=== PATIENT | female | born 2000 | race Caucasian/White ===

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

== ENCOUNTER → 2018-03-27 16:06 | Outpatient (CLI) | payer OTHER, SELFPAY ==
[2018-03-27 14:46] VITALS: BMI 29.9
[2018-03-27 17:35] LABS: Vitamin B12 557 pg/mL (211-911)
[2018-03-27 17:38] LABS: Ferritin 30 ng/mL (8-252); Free T3 2.7 pg/mL (2.18-3.98); Iron 62 ug/dL (50-170); T4 Free Direct 0.86 ng/dL (0.76-1.46); Thyroid Stim Hormone (TSH) 8.69 uIU/mL (0.358-3.74)
--- OUTSIDE RECORDS SUMMARY | 2018-06-29 08:57 | XMS RPT_ITS ---
:2000 Author Organization OH[facility] Care Team Providers Name Role Phone Farhana Shea DENTAL TECHNICIAN APPRENTICE-C Attending Unavailable Playl, Referring Unavailable Farhana Shea DENTAL TECHNICIAN APPRENTICE-C Attending Unavailable Farhana Shea DENTAL TECHNICIAN APPRENTICE-C Referring Unavailable Oleghe, Efewongbe Primary Care Unavailable Oleghe, Efewongbe Attending Unavailable Oleghe, Efewongbe Referring Unavailable Playl, Primary Care Unavailable Oleghe, Efewongbe Attending Unavailable Oleghe, Efewongbe Referring Unavailable Oleghe, Efewongbe Primary Care Unavailable Oleghe, Efewongbe Attending Unavailable Oleghe, Efewongbe Referring Unavailable Farhana Shea DENTAL TECHNICIAN APPRENTICE-C Attending Unavailable Shook, Farhana J DENTAL TECHNICIAN APPRENTICE-C Referring Unavailable Oleghe, Efewongbe Primary Care Unavailable PLAYLTIMOTHY Attending Unavailable PLAYL, TIMOTHY Thomas Referring Unavailable PLAYLTIMOTHY M Referring Unavailable PLAYL, M Referring Unavailable JASIEL DUMONT) Attending Unavailable TIMOTHY BONDS Referring Unavailable PROBLEMS PROBLEMS DATE TYPE CONDITION / CODE ATTENDING STATUS SOURCE 03/27/2018 Unknown R94.6 - Abnormal Farhana Shae Active [facility] results of D[facility]AL TECHNICIAN APPR[facility] Hospital studies / Repository R94.6(ICD-10) 03/27/2018 Unknown E06.3 - Farhana Shea Active [facility] DENTAL TECHNICIAN APPRENTICE[facility] thyroiditis / Hospital E06.3(ICD-10) Repository 09/10/2017 Active Left lower NA Active [facility] quadrant pain / [facility] [place] R10.32(ICD-10) Repository 02/21/2018 Unknown K90.41 - Olechapis, Active [place] 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 / Hospital K90.41(ICD-10) Repository 02/21/2018 Unknown R10.9 - Oleghe, Active [facility] Unspecified [facility] abdominal pain / Hospital R10.9(ICD-10) Repository PROCEDURES PROCEDURES No Procedure Records FoundRESULTS RESULTS THYROID Observed: 03/31/2018 Status: F Source: [place] 1:16 PM [facility] REPOSITORY [facility] Imaging Services [address] [place] [address] Thyroid MR#: [id number] Acct: [id number] Name: VELIA COHEN Rep #: [id number] : 2000 F 18 From: Nguyen Steven MD PCP: Meaghan Murphy MD Status: REG CLI Study: Thyroid Date of Exam: 03/31/18 Exam# [id number] Ordering Dr: Farhana Shea DENTAL TECHNICIAN APPRENTICE-C STUDY: THYROID ULTRASOUND REASON FOR EXAM: Female, 18 years old. Hypothyroidism. TECHNIQUE: Ultrasound evaluation of the thyroid was performed with real-time and static brown-scale imaging. COMPARISON: None. FINDINGS: RIGHT LOBE: The right lobe of the thyroid gland measures 5.2 x 2.0 x 1.9 cm. There is a heterogeneous echotexture. There are no demonstrated solid, cystic or complex lesions. There is increased vascularity throughout the gland. LEFT LOBE: The left lobe of the thyroid gland measures 5.3 x 2.1 x 1.9 cm. There is a heterogeneous echotexture. There are no demonstrated solid, cystic or complex lesions. ISTHMUS: The isthmus measures 0.3 cm. US/Thyroid IMPRESSION: Enlarged, heterogenous and hypervascular thyroid gland consistent with a history of thyroiditis. Electronically Signed: Nguyen Steven MD at 16:05 EST Tel , Service support , CC: Farhana Shea NP; Meaghan Murphy MD Smalltalk Developer: Signed OFFICE VISIT REPORT Observed: 03/27/2018 Status: F Source: [place] 9:[address] [address] OFFICE VISIT Date of Service: 03/27/18 MR#: [id number] Acct: [id number] Patient: VELIA COHEN Rep #: [id number] : 2000 Provider: Farhana Shea NP Age/Sex: 18/F Location: 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 Accompanied by: Family / Other Allergies No Known Allergies Allergy (Verified 03/27/18 14:22) Medications desogestrel 0.15 mg-ethinyl estradiol 0.03 mg tablet 1 tab PO DAILY 03/27/18 [History Confirmed 03/27/18] PFSH Medical History Gluten intolerance (Chronic) History of thyroid disorder (Acute) Seasonal allergies (Chronic) Anxiety and depression (Acute) Back problem (Acute) GI problem (Acute) Hormone deficiency (Acute) IBS (irritable bowel syndrome) (Acute) Chronic headaches (Chronic) Family History Grandfather Cancer hodgkins Colon cancer Sister Seizures during director industrial nursing Thyroid disorder Father Hypertension Thyroid disorder Grandmother Colitis Breast cancer Social History Smoking Status: Never smoker alcohol intake: never substance use type: does not use what type of physical activity do you participate in: running, weight training frequency: 5-6 times per week Questionnaire Depression Screen PHQ-2/9 PHQ-2 Over the last 2 weeks, how often have you been bothered by any of the following problems? 1. Little interest or pleasure in doing things: not at all 2. Feeling down, depressed, or hopeless: several days Total score: 1 If score is 2 or greater, continue 3. Trouble falling or staying asleep, or sleeping too much: more than half the days 4. Feeling tired or having little energy: more than half the days 5. Poor appetite or overeating: several days 6. Feeling bad about yourself - or that you are a failure or have let yourself and your family down: not at all 7. Trouble concentrating on things, such as reading the newspaper or watching television: not at all 8. Moving or speaking so slowly that other people could have noticed? - Or the opposite - being so fidgety or restless that you have been moving around a lot more than usual: not at all 9. Thoughts that you would be better off or of hurting yourself in some way: not at all Total score: 6 If you checked off any problems, how difficult have these problems made it for you to do your work, take care of things at home, or get along with other people?: not difficult at all Source: Developed by Drs. Yadiel Sandoval, Louisa Sage, Dat Harley and colleagues, with an educational delano from [employer]. Scoring: Total Score Depression Severity Action 1-4 Minimal depression No action needed 5-9 Mild depression Repeat PHQ-9 at follow up 10-14 Moderate depression Make tx plan,consider counseling, fup, prescription HPI HPI Details: VELIA VICKI, is a 18 F who presents to the office today for consult of thyroid. Father accompanies patient. Diagnosed approximately 3 years ago as thyroiditis. Found to have positive antibodies. Thyroid labs however have remained in normal range. Patient does have complaints of thyroid dysfunction. Family history of hypothyroidism including father and older sster. Severity, modifying factors, context, and associated signs and symptoms are as follows: Thyroid pain: No Energy: Reduced Sleep: Not awakened refreshed Temp: Cold intolerance GI: Normal bowel, also bouts of constipation Weight: Flucuates Eyes: No change in vision Memory: unchanged Diaphoresis: Not significant Skin: Dry Hair : Not as thick as in past. Neuro: No numbness, tingling or tremors At time of visit: -Pt denies symptoms of hypertensive emergency (CP,SOB,HOLCOMB, or blurred vision) and hypotension(dizziness or lightheadedness) -Pt denies symptoms of hypoglycemia ( sweaty, confusion, anxiety, tremor, hunger, palpitations) and hyperglycemia ( polydipsia, polyuria) -Pt denies potential medication adverse effect. Has followed a vegan diet for several months but started not to feel well. Has recently changed diet back to regular diet including meat sources. Denies any stomach issues related to gluten. Has brought copies of labs in past noting also work up for GI complaints. No source of intermittent abdominal pain found. Given omeprazole but patient did not take. Diet 3 meals daily Exercise Works out daily while at school ([employer]) ROS Const Constitutional: No anorexia, body ache, chills, fever(s), frequent falls, decreased energy, malaise, night sweats, weakness, weight change, sleep problems, abnormal sleep pattern, change in appetite, other, headache(s), snoring, excessive sweating or fatigue Eyes Eyes: No blurry vision, change in vision, double vision, discharge, dry eyes, bulging eyes, floaters, visual disturbances, eye pain, light sensitivity, spots in vision, tunnel vision or other ENT ENT: Positive for post nasal drip; no abnormal hearing, ear pain, ear discharge, ear pressure, hearing loss, tinnitus, dizziness/vertigo, balance problems, nosebleed/epistaxis, nasal congestion, nasal obstruction, nose pain, sinus pressure, sinus pain, nasal discharge, headache(s), facial pain, dental pain, dry mouth, bad breath, hoarseness, lip swelling, mouth lesions, mouth pain, sore throat, tongue swelling, throat swelling, difficulty swallowing, neck pain or other Resp Respiratory: Positive for cough; no change in phlegm color, chest congestion, excessive phlegm production, hemoptysis, pain on inspiration, shortness of breath, pain with cough, snoring, stridor, wheezing or other Cardio Cardiology: No chest pain at rest, chest pain with exertion, leg pain with exertion, shortness of breath, dyspnea on exertion, generalized swelling, irregular heart rhythm, lightheadedness, orthopnea, radiating jaw, neck or arm pain, fast heart rate, slow heart rate, palpitations, other or excessive sweating Gastro GI: No abdominal pain, belching, bloating, change in bowel habits, change in stool character, coffee ground emesis, constipation, cramping, diarrhea, heartburn, difficulty swallowing, feeling full early, excessive flatus, incontinent of stools, Vomiting blood/hematemesis, blood in stool, loose stools, Black,tarry stools, nausea/dyspepsia, pain with swallowing, vomiting or other Genitourinary-Female: No difficulty urinating, burning urination, painful urination, urinary incontinence, urinary frequency, urinary urgency, urinary hesitancy, urinary retention, blood in urine, Frequent nighttime urination/ nocturia, post void dribbling, suprapubic fullness, side pain, sexual problems, genital lesions, genital itching, hot flashes, abnormal periods, abnormal vaginal bleeding, absent period, painful periods, light periods, heavy periods, difficulty getting , painful intercourse, pelvic pain, vaginal dryness, vaginal odor, Vaginal Itching or other Musc Musculoskeletal: No abnormal walking, joint pain, back pain, deformity, joint swelling, limited range of motion, loss of height, muscle cramps, muscle weakness, decreased muscle mass, body aches, neck pain, numbness, radiating pain into limb, stiffness, tingling or other Skin Skin: No acne, hair loss, change in hair, nail changes, boil, change in skin color, dry skin, redness, excessive hair growth, yellowing of the skin, lesions, itching, rash, skin pain, skin ulcer, sores, skin swelling, wounds or other Breast Breast: No other Neuro Neurology: No frequent falls, weakness, visual disturbances, abnormal hearing, headache(s), abnormal walking, numbness or tingling Psych Psychiatric: No abnormal sleep pattern, No change in appetite Endo Endocrine: Positive for cold intolerance; no change in body appearance, excessive sweating, fatigue, flushing, heat intolerance, increased thirst/drinking, increased hunger, increased urination or other Aller/Imm Allergy/Immunologic: No lip swelling, tongue swelling, throat swelling, wheezing or itchy eyes Exam Const General: healthy appearing, well developed, well groomed Nutritional Appearance: well nourished Orientation: oriented x3 HENMT Head: normal to inspection, atraumatic Ears: hearing grossly normal bilaterally Nose: external nose normal Face and sinus: normal facial exam, face symmetric Mouth: oral mucosae normal, moist mucous membranes Teeth and gingiva: dentition normal Eyes General: appearance normal, both eyes and all related structures Eyelids: eyelids normal Conjunctivae: conjunctivae normal Sclera: sclerae normal Pupils: PERRL Neck Neck: normal visual inspection, full ROM Thyroid: diffusely enlarged Resp Effort AND Inspection: normal respiratory effort, able to speak in complete sentences, symmetric chest movement Auscultation: Bilateral: Clear to Auscultation Cardio Rate: regular rate Rhythm: regular rhythm Heart Sounds: S1 normal, S2 normal, no murmurs GI Inspection: normal to inspection Auscultation: normal bowel sounds Musc Musculoskeletal: No muscle weakness Skin General: elasticity normal, turgor normal Wounds: no wounds Neuro General: oriented x3, moves all extremities Cranial Nerves: CN's II-XI intact bilaterally Extrem General: no pedal edema, full ROM, normal to inspection, normal capillary refill Psych Appearance: grossly normal, well kempt Mental Status: mental status grossly normal Mood: congruent mood Affect: normal affect Speech and Movement: speech and movement normal Attitude: cooperative Thought Process: normal Thought Content: normal Judgment: judgment good Assessment AND Plan 1. Thyroid dysfunction E07.9 Plan Plan is to recheck thyroid labs as well as iron,ferritin,and B12 levels. Will order US of thyroid. Call with results. Plan Detail Other Orders Orders: Additional Comments Spent approximately 45 minutes with patient with over 50% of time spent in discussion and counseling regarding medication, symptoms and treatment of hypothyroidism Coding Level of Care Code Off vis,new,level 3 Diagnoses Thyroid dysfunction E07.9 03/27/182113 <Electronically signed by Farhana J Shook DENTAL TECHNICIAN APPRENTICE-C> Date Farhana Zayas Monse DENTAL TECHNICIAN APPRENTICE-C Cosigner Signature: Date (if applicable) CC: VITAMIN B12 Collected: 03/27/2018 Status: F Source: [place] 4:16 PM [facility] REPOSITORY TYPE CODE TESTS RESULT OUT OF RANGE REFERENCE UNITS LAB L503.0105 211-911 pg/mL Normal Vitamin B12 557 Performed By: #### L503.0105 #### [facility] [address] [place] [address]. [place], [place], [id number] FREE T3 Collected: 03/27/2018 Status: F Source: [place] 4:16 PM [facility] REPOSITORY TYPE CODE TESTS RESULT OUT OF RANGE REFERENCE UNITS LAB L501.26726 2.18-3.98 pg/mL Normal FREE T3 2.7 Performed By: #### L501.41540, L501.9520, L503.6150, L503.6550, L506.0400 #### [facility] [place], [place], [id number] THYROID STIM HORMONE Collected: 03/27/2018 Status: F Source: [place] (TSH) 4:16 PM [facility] REPOSITORY TYPE CODE TESTS RESULT OUT OF RANGE REFERENCE UNITS LAB L501.9520 0.358-3.74 uIU/mL High TSH 8.69 Performed By: #### L501.63782, L501.9520, L503.6150, L503.6550, L506.0400 #### [facility] [address] [place], [address] IRON Collected: 03/27/2018 Status: F Source: [place] 4:16 PM [facility] REPOSITORY TYPE CODE TESTS RESULT OUT OF RANGE REFERENCE UNITS LAB L503.6150 50-170 ug/dL Normal IRON 62 Performed By: #### L501.58918, L501.9520, L503.6150, L503.6550, L506.0400 #### [facility] [address], [address] FERRITIN Collected: 03/27/2018 Status: F Source: [place] 4:16 PM [facility] REPOSITORY TYPE CODE TESTS RESULT OUT OF RANGE REFERENCE UNITS LAB L503.6550 8-252 ng/mL Normal FERRITIN 30 Performed By: #### L501.02509, L501.9520, L503.6150, L503.6550, L506.0400 #### [facility] [address], [address] T4 FREE DIRECT Collected: 03/27/2018 Status: F Source: [place] 4:16 PM [facility] REPOSITORY TYPE CODE TESTS RESULT OUT OF RANGE REFERENCE UNITS LAB L506.0400 0.76-1.46 ng/dL Normal T4 FREE 0.86 DIRECT Performed By: #### L501.59571, L501.9520, L503.6150, L503.6550, L506.0400 #### [facility] [address] [place], [address] CNCO Observed: 03/24/2018 Status: COMPLETED Source: [place] 12:00 AM [facility] REPOSITORY Letter Text Jasiel Dumont MD [facility] [place] [address] Velia Cohen March 24, 2018 Velia Cohen [address] [facility] [address] Dear Ms. Cohen, It was noted that you did not keep your scheduled appointment on 03/24/18. It is important to contact the office in advance if you are unable to keep your appointment so that it is available for other patients. Your medical care is important to us. Please call our office to reschedule an appointment. Sincerely, Jasiel Dumont MD PROGRESS Observed: 01/27/2018 Status: COMPLETED Source: [place] 1:01 PM [facility] REPOSITORY HNO ID: [id number] Author: Jasiel Kessler) Tim Service: (none) Author Type: Physician Type: Progress Notes Filed: 01/30/2018 3:48 PM Note Text: [facility] New Patient Visit Name: Velia Cohen : 2000 [place] Dresser: Timothy Bonds MD Patient presents with: Abdominal Pain: c/o abdominal pain after eating anything. Went vegan to try and eliminate, but not working as much. present for about a year. worse since June or July. History of Present Illness: Velia is a 18 year old old female who presents for consultation for Patient presents with: Abdominal Pain: c/o abdominal pain after eating anything. Went vegan to try and eliminate, but not working as much. present for about a year. worse since June or July. , requested by Dr. Timothy Bonds MD . Velia Cohen is accompanied by her Mother. Velia is a 18yo F who presents with left sided abdominal pain. Pain has been going on for the past year but is getting worse over the past 6 months. Pain is predominantly after eating. Pain is daily. The pain starts within 1 hour of eating. Left lower quadrant and radiates back, some in RLQ. She does feel like she has to have a BM after eating but can't. Pain is stabbing. Lasts 30 min to 3 hours, typically 90+min. Before being vegan she had a BM 2 times a week. Now she is 1-2 BMs a day, small. She does feel like she evacuates. Some straining. No blood. Was sitting on toilet 30min at a time when eating meat but now about 10 min. Sitting on toilet after every meal. Eating vegan over past 2-3 months, has helped a little. No vomiting. No weight loss. In college at [email or web address], studying film and writing. Component Latest Ref Rng AND Units 09/10/2017 WBC 3.70 - 11.00 k/uL 5.79 RBC 3.90 - 5.20 m/uL 4.94 Hemoglobin 11.5 - 15.5 g/dL 12.6 Hematocrit 36.0 - 46.0 % 41.4 MCV 80.0 - 100.0 fL 83.8 MCH 26.0 - 34.0 pG 25.5 (L) MCHC 30.5 - 36.0 g/dL 30.4 (L) RDW-CV 11.5 - 15.0 % 13.2 Platelet Count 150 - 400 k/uL 280 Component Latest Ref Rng AND Units 05/03/2017 IgA 78 - 391 mg/dL 115 Transglutaminase Ab, IgA <20 Units 4 Component Latest Ref Rng AND Units 05/03/2017 09/10/2017 TSH 0.400 - 5.500 uU/mL 2.320 Amylase 30 - 104 U/L 86 WSR 0 - 20 mm/hr 17 Component Latest Ref Rng AND Units 09/10/2017 Albumin 3.9 - 4.9 g/dL 4.3 Component Latest Ref Rng AND Units 09/12/2017 11:30 AM Culture No parasites seen. Component Latest Ref Rng AND Units 09/12/2017 3:00 PM Test Results Negative for lactoferrin, which may indicate the absence of fecal white blood . . . Component Latest Ref Rng AND Units 09/12/2017 2:00 PM Occult Blood Diagnostic Negative 09/14/2017 11:34 AM - Radiology, [place] In Impression IMPRESSION: NORMAL SONOGRAPHIC APPEARANCE OF THE FEMALE PELVIS. 09/14/2017 11:31 AM - Radiology, [place] In - Kidneys/Bladder Impression IMPRESSION: Negative exam Review of Systems: GENERAL: No weight loss, malaise or fevers. HEENT: Negative for frequent or significant headaches, No changes in hearing or vision, no nose bleeds or other nasal problems NECK: Negative for goiter, pain or significant neck swelling RESPIRATORY: Negative for cough, hemoptysis, wheezing or shortness of breath CARDIOVASCULAR: Negative for chest pain, leg swelling or palpitations GI: See HPI MUSCULOSKELETAL: Negative for joint pain or swelling, back pain or muscle pain SKIN: Negative for lesions, rash, and itching. PSYCH: Negative for sleep disturbance, mood disorder and recent psychosocial stressors. HEMATOLOGY/LYMPHOLOGY: Negative for prolonged bleeding, bruising easily or swollen nodes. ENDOCRINE: Negative for cold or heat intolerance, polyuria or polydipsia. NEURO: No history of headaches, syncope, paralysis, seizures or tremors The remainder of the systems were reviewed and are negative. Allergies: ALLERGIES Allergen Reactions - Environmental [Othe* Itching Medications: APRI 0.15-0.03 mg per tablet Take 1 tablet by mouth once daily. cetirizine (ZYRTEC) 10 mg tablet Take 10 mg by mouth once daily. fluticasone (FLONASE) 50 mcg/actuation nasal spray Use 1 [place] in each nostril once daily. PAST MEDICAL HISTORY Diagnosis Date - Menarche 6-2011 Age 11 PAST SURGICAL HISTORY Procedure Laterality Date - NONE FAMILY HISTORY Problem Relation Age of Onset - None Mother - other (Hashimotos) Father - Diabetes Maternal Grandmother - other (glaucoma) Maternal Grandmother - other (liver failure) Maternal Grandmother - other (mac degeneration) Maternal Grandmother - Diabetes Maternal Grandfather - Colon Cancer Maternal Grandfather - Breast Cancer Paternal Grandmother 80 - GI Paternal Grandmother Ulcerative colitis - other (Myasthenia Gravis) Paternal Grandmother - other (Hodgkin's Disease) Paternal Grandfather - Diabetes Maternal Uncle PEDIATRIC HISTORY Gestational age: 40 wks Delivery method: scores: One: 9 Five: 9 weight: 4224 g (9 lb 5 oz) Discharge weight: N/A Length: N/A HC: N/A Feeding method: SOCIAL HISTORY: In college at [employer], studying film and writing. Physical Exam: Last 3 Encounter Wt Readings: Date: Wt: 01/27/2018 88.2 kg (194 lb 8 oz) 09/10/2017 89.1 kg (196 lb 8 oz) (97 %, Z= 1.89)* 05/03/2017 90.2 kg (198 lb 14.4 oz) (97 %, Z= 1.93)* Vital Signs:-Ht 5' 8.898 (1.75m) Wt 194 lb 8 oz (88.2kg) LMP 12/28/2017 BMI 28.81 kg/(m2). General/Constitutional:- alert and active in no apparent distress Head:- Normocephalic Eye:- PERRLA, conjunctiva clear, no icterus Ear- Right:-normal Left:-normal Nose/Sinus:- Nares normal. Septum midline. Mucosa normal. Oropharynx:- moist mucous membranes, tonsils without hypertrophy and no exudates present Neck/Lymphatic:- supple, no adenopathy Cardiac:- Regular Rate and Rhythm without murmurs or clicks Respiratory:- clear to auscultation Gastrointestinal:- Abdomen is soft, focal left sided tenderness just below ribs in mid-axial line, spleen non-palpable; BS normal, there are no masses or organomegaly and there are no abdominal or flank bruits noted on auscultation Rectal :- normal perianal exam, internal exam deferred Neuro:- Muscle tone normal, Normal age appropriate gait and No involuntary motions. Genitourinary:- deferred Musculoskeletal :- Extremities with FROM and no problems identified., spine without evidence of scoliosis Extremity:- Normal exam of the extremities. No clubbing, cyanosis, or edema. Skin:-normal color, no jaundice or rash I reviewed notes, labs in EMR. IMPRESSION: Velia Cohen is a 18 year old female who presents with chronic post-prandial LLQ abdominal pain for the past 6 months. Pain is stabbing, lasts a median of 90 minutes. Having small daily BMs, sits on toilet after every meal but cannot evacuate each time. Was having 1-2 BMs a week 3 months ago. Has tried eating vegan diet for pain, little improvement. No joint pain, rashes, or weight loss, BMI 28. Labs including CBC and celiac antibodies normal, stool lactoferrin negative. Pain on exam is focal in LLQ, no stool or mass. Velia is very well appearing with a normal exam. Will start with constipation treatment and anti-spasmodic, consider colonoscopy if not improving. We discussed Irritable Bowel Syndrome, the brain-gut axis and the relationship of abdominal symptoms with stress and anxiety. I discussed the importance of psychological therapy and healthy lifestyle choices as it relates to IBS. RECOMMENDATIONS: To further evaluate we discussed to proceed with testing as listed below. Abdominal pain with constipation 1. Take Dicyclomine (Bentyl) 1 Capsules - Before meals 3 times a day ? -can increase to 2 capsules if needed -side effects: dry mouth, rarely causes dizziness ? CONSTIPATION TREATMENT 1. CLEANOUT -- Give 15 capfuls of Miralax dissolved in 60 oz of fluid (non-carbonated) over 2-3 hours. ? 2. MAINTENANCE -- After clean out, give 1 capful of Miralax (17gm) dissolved in 5-6 oz of non-carbonated fluid daily. -- Adjust the dose of Miralax by 1/2 cap every 3-4 days so that stools are formed, soft with at least 1 stool daily. ? Miralax softens, it does not make you. ? 3. HEALTHY BOWEL HABITS - MECHANICS -- Minimize straining on the toilet - 10 min max ? -- It is okay if nothing comes out while on the toilet, the act of sitting and trying to have a bowel movement is important. If no bowel movement after 10 minutes, get up from toilet and try again with the next meal. ? -- Please be sure that both feet are on a solid surface when sitting on toilet. If feet do not reach the floor, a stool or phone book may be useful. ? -- Drink 2-3 L of water per day, eat healthy, exercise 30minutes per day, get 8-9 hours of sleep at night, and Go To School! ? 4. Consider colonoscopy if not improving FOLLOW UP: 2 months Worrisome signs and symptoms discussed with patient and caregiver. I spent greater than 50% of 60 minutes coordinating care and counseling the patient as detailed in my impression and recommendations. Jasiel Dumont MD Pediatric Gastroenterology [facility] [address], [place] [address] January 27, 2018 1:01 PM Consultation requested by Dr. Timothy Bonds MD for an opinion regarding Velia Cohen. My final recommendations will be communicated back to the requesting physician by way of shared Medical record or letter to requesting physician via US mail. CC: Timothy Bonds MD [address] [place] [address] CNOV Observed: 01/27/2018 Status: COMPLETED Source: [place] 1:00 PM [facility] REPOSIT[facility] Office Visit (PGASST) VELIA COHEN ([id number]) 2000 F Date Time Provider Department 01/27/18 1:00 PM JASIEL DUMONT) PGASST During your visit today, we recorded the following information about you: Weight Height Last Period 88.2 kg 1.75 m 12/28/17 Jasiel Dumont MD 01/30/2018 3:48 PM Signed [facility] Pediatric Gastroenterology New Patient Visit Name: Velia Cohen : 2000 [address] Dresser: Timothy Bonds MD Patient presents with: Abdominal Pain: c/o abdominal pain after eating anything. Went vegan to try and eliminate, but not working as much. present for about a year. worse since June or July. History of Present Illness: Velia is a 18 year old old female who presents for consultation for Patient presents with: Abdominal Pain: c/o abdominal pain after eating anything. Went vegan to try and eliminate, but not working as much. present for about a year. worse since June or July. , requested by Dr. Timothy Bonds MD . Velia Cohen is accompanied by her Mother. Velia is a 18yo F who presents with left sided abdominal pain. Pain has been going on for the past year but is getting worse over the past 6 months. Pain is predominantly after eating. Pain is daily. The pain starts within 1 hour of eating. Left lower quadrant and radiates back, some in RLQ. She does feel like she has to have a BM after eating but can't. Pain is stabbing. Lasts 30 min to 3 hours, typically 90+min. Before being vegan she had a BM 2 times a week. Now she is 1-2 BMs a day, small. She does feel like she evacuates. Some straining. No blood. Was sitting on toilet 30min at a time when eating meat but now about 10 min. Sitting on toilet after every meal. Eating vegan over past 2-3 months, has helped a little. No vomiting. No weight loss. In college at [email or web address], studying film and writing. Component Latest Ref Rng AND Units 09/10/2017 WBC 3.70 - 11.00 k/uL 5.79 RBC 3.90 - 5.20 m/uL 4.94 Hemoglobin 11.5 - 15.5 g/dL 12.6 Hematocrit 36.0 - 46.0 % 41.4 MCV 80.0 - 100.0 fL 83.8 MCH 26.0 - 34.0 pG 25.5 (L) MCHC 30.5 - 36.0 g/dL 30.4 (L) RDW-CV 11.5 - 15.0 % 13.2 Platelet Count 150 - 400 k/uL 280 Component Latest Ref Rng AND Units 05/03/2017 IgA 78 - 391 mg/dL 115 Transglutaminase Ab, IgA <20 Units 4 Component Latest Ref Rng AND Units 05/03/2017 09/10/2017 TSH 0.400 - 5.500 uU/mL 2.320 Amylase 30 - 104 U/L 86 WSR 0 - 20 mm/hr 17 Component Latest Ref Rng AND Units 09/10/2017 Albumin 3.9 - 4.9 g/dL 4.3 Component Latest Ref Rng AND Units 09/12/2017 11:30 AM Culture No parasites seen. Component Latest Ref Rng AND Units 09/12/2017 3:00 PM Test Results Negative for lactoferrin, which may indicate the absence of fecal white blood . . . Component Latest Ref Rng AND Units 09/12/2017 2:00 PM Occult Blood Diagnostic Negative 09/14/2017 11:34 AM - Radiology, [place] In Impression IMPRESSION: NORMAL SONOGRAPHIC APPEARANCE OF THE FEMALE PELVIS. 09/14/2017 11:31 AM - Radiology, [place] In - Kidneys/Bladder Impression IMPRESSION: Negative exam Review of Systems: GENERAL: No weight loss, malaise or fevers. HEENT: Negative for frequent or significant headaches, No changes in hearing or vision, no nose bleeds or other nasal problems NECK: Negative for goiter, pain or significant neck swelling RESPIRATORY: Negative for cough, hemoptysis, wheezing or shortness of breath CARDIOVASCULAR: Negative for chest pain, leg swelling or palpitations GI: See HPI MUSCULOSKELETAL: Negative for joint pain or swelling, back pain or muscle pain SKIN: Negative for lesions, rash, and itching. PSYCH: Negative for sleep disturbance, mood disorder and recent psychosocial stressors. HEMATOLOGY/LYMPHOLOGY: Negative for prolonged bleeding, bruising easily or swollen nodes. ENDOCRINE: Negative for cold or heat intolerance, polyuria or polydipsia. NEURO: No history of headaches, syncope, paralysis, seizures or tremors The remainder of the systems were reviewed and are negative. Allergies: ALLERGIES Allergen Reactions - Environmental [Othe* Itching Medications: APRI 0.15-0.03 mg per tablet Take 1 tablet by mouth once daily. cetirizine (ZYRTEC) 10 mg tablet Take 10 mg by mouth once daily. fluticasone (FLONASE) 50 mcg/actuation nasal spray Use 1 [place] in each nostril once daily. PAST MEDICAL HISTORY Diagnosis Date - Menarche 6-2011 Age 11 PAST SURGICAL HISTORY Procedure Laterality Date - NONE FAMILY HISTORY Problem Relation Age of Onset - None Mother - other (Hashimotos) Father - Diabetes Maternal Grandmother - other (glaucoma) Maternal Grandmother - other (liver failure) Maternal Grandmother - other (mac degeneration) Maternal Grandmother - Diabetes Maternal Grandfather - Colon Cancer Maternal Grandfather - Breast Cancer Paternal Grandmother 80 - GI Paternal Grandmother Ulcerative colitis - other (Myasthenia Gravis) Paternal Grandmother - other (Hodgkin's Disease) Paternal Grandfather - Diabetes Maternal Uncle PEDIATRIC HISTORY Gestational age: 40 wks Delivery method: scores: One: 9 Five: 9 weight: 4224 g (9 lb 5 oz) Discharge weight: N/A Length: N/A HC: N/A Feeding method: SOCIAL HISTORY: In college at [employer], studying film and writing. Physical Exam: Last 3 Encounter Wt Readings: Date: Wt: 01/27/2018 88.2 kg (194 lb 8 oz) 09/10/2017 89.1 kg (196 lb 8 oz) (97 %, Z= 1.89)* 05/03/2017 90.2 kg (198 lb 14.4 oz) (97 %, Z= 1.93)* Vital Signs:-Ht 5' 8.898 (1.75m) Wt 194 lb 8 oz (88.2kg) LMP 12/28/2017 BMI 28.81 kg/(m2). General/Constitutional:- alert and active in no apparent distress Head:- Normocephalic Eye:- PERRLA, conjunctiva clear, no icterus Ear- Right:-normal Left:-normal Nose/Sinus:- Nares normal. Septum midline. Mucosa normal. Oropharynx:- moist mucous membranes, tonsils without hypertrophy and no exudates present Neck/Lymphatic:- supple, no adenopathy Cardiac:- Regular Rate and Rhythm without murmurs or clicks Respiratory:- clear to auscultation Gastrointestinal:- Abdomen is soft, focal left sided tenderness just below ribs in mid-axial line, spleen non-palpable; BS normal, there are no masses or organomegaly and there are no abdominal or flank bruits noted on auscultation Rectal :- normal perianal exam, internal exam deferred Neuro:- Muscle tone normal, Normal age appropriate gait and No involuntary motions. Genitourinary:- deferred Musculoskeletal :- Extremities with FROM and no problems identified., spine without evidence of scoliosis Extremity:- Normal exam of the extremities. No clubbing, cyanosis, or edema. Skin:-normal color, no jaundice or rash I reviewed notes, labs in EMR. IMPRESSION: Velia Cohen is a 18 year old female who presents with chronic post-prandial LLQ abdominal pain for the past 6 months. Pain is stabbing, lasts a median of 90 minutes. Having small daily BMs, sits on toilet after every meal but cannot evacuate each time. Was having 1-2 BMs a week 3 months ago. Has tried eating vegan diet for pain, little improvement. No joint pain, rashes, or weight loss, BMI 28. Labs including CBC and celiac antibodies normal, stool lactoferrin negative. Pain on exam is focal in LLQ, no stool or mass. Velia is very well appearing with a normal exam. Will start with constipation treatment and anti-spasmodic, consider colonoscopy if not improving. We discussed Irritable Bowel Syndrome, the brain-gut axis and the relationship of abdominal symptoms with stress and anxiety. I discussed the importance of psychological therapy and healthy lifestyle choices as it relates to IBS. RECOMMENDATIONS: To further evaluate we discussed to proceed with testing as listed below. Abdominal pain with constipation 1. Take Dicyclomine (Bentyl) 1 Capsules - Before meals 3 times a day ? -can increase to 2 capsules if needed -side effects: dry mouth, rarely causes dizziness ? CONSTIPATION TREATMENT 1. CLEANOUT -- Give 15 capfuls of Miralax dissolved in 60 oz of fluid (non-carbonated) over 2-3 hours. ? 2. MAINTENANCE -- After clean out, give 1 capful of Miralax (17gm) dissolved in 5-6 oz of non-carbonated fluid daily. -- Adjust the dose of Miralax by 1/2 cap every 3-4 days so that stools are formed, soft with at least 1 stool daily. ? Miralax softens, it does not make you. ? 3. HEALTHY BOWEL HABITS - MECHANICS -- Minimize straining on the toilet - 10 min max ? -- It is okay if nothing comes out while on the toilet, the act of sitting and trying to have a bowel movement is important. If no bowel movement after 10 minutes, get up from toilet and try again with the next meal. ? -- Please be sure that both feet are on a solid surface when sitting on toilet. If feet do not reach the floor, a stool or phone book may be useful. ? -- Drink 2-3 L of water per day, eat healthy, exercise 30minutes per day, get 8-9 hours of sleep at night, and Go To School! ? 4. Consider colonoscopy if not improving FOLLOW UP: 2 months Worrisome signs and symptoms discussed with patient and caregiver. I spent greater than 50% of 60 minutes coordinating care and counseling the patient as detailed in my impression and recommendations. Jasiel Dumont MD Pediatric Gastroenterology [facility] [place] [id number] January 27, 2018 1:01 PM Consultation requested by Dr. Timothy Bonds MD for an opinion regarding Velia Cohen. My final recommendations will be communicated back to the requesting physician by way of shared Medical record or letter to requesting physician via US mail. CC: Timothy Bonds MD [address] [place] [address] Jasiel Dumont MD 01/27/2018 1:34 PM Addendum Discussed pain may be constipation with irritable bowel component. 1. Take Dicyclomine (Bentyl) 1 Capsules - Before meals 3 times a day -can increase to 2 capsules if needed -side effects: dry mouth, rarely causes dizziness CONSTIPATION TREATMENT 1. CLEANOUT -- Give 15 capfuls of Miralax dissolved in 60 oz of fluid (non-carbonated) over 2-3 hours. 2. MAINTENANCE -- After clean out, give 1 capful of Miralax (17gm) dissolved in 5-6 oz of non-carbonated fluid daily. -- Adjust the dose of Miralax by 1/2 cap every 3-4 days so that stools are formed, soft with at least 1 stool daily. Miralax softens, it does not make you. 3. HEALTHY BOWEL HABITS - MECHANICS -- Minimize straining on the toilet - 10 min max -- It is okay if nothing comes out while on the toilet, the act of sitting and trying to have a bowel movement is important. If no bowel movement after 10 minutes, get up from toilet and try again with the next meal. -- Please be sure that both feet are on a solid surface when sitting on toilet. If feet do not reach the floor, a stool or phone book may be useful. -- Encourage water intake throughout the day. We discussed Irritable Bowel Syndrome, the brain-gut axis and the relationship of abdominal symptoms with stress and anxiety. I discussed the importance of psychological therapy and healthy lifestyle choices as it relates to IBS. Drink 2-3 L of water per day, eat healthy, exercise 30minutes per day, get 8-9 hours of sleep at night, and Go To School! 4. Consider colonoscopy if not improving Referring Provider: TIMOTHY BONDS [[id number]] Allergies As of Date: 01/27/2018 Noted Allergy Reaction environmental [Other] 03/26/2010 9 - Itching Date Reviewed: 01/27/2018 Reviewed by: Jasiel Kessler) Tim - Fully Assessed Reason for Visit: Abdominal Pain [1] Cmt: c/o abdominal pain after eating anything. Went vegan to try and eliminate, but not working as much. present for about a year. worse since June or July. Reason For Visit History Recorded Primary Visit Diagnosis:LLQ abdominal pain [R10.32] Other Visit Diagnoses:Chronic idiopathic constipation [K59.04] Bloating [R14.0] Hyperthyroidism [E05.90] Order(s):dicyclomine (BENTYL) 10 mg capsuleTake 1 capsule by mouth three times daily.Disp: 90 capsuleRfl: 3 Prescriptions as of 01/27/2018 Sig: DICYCLOMINE 10 MG CAPSULE Take 1 capsule by mouth three* APRI 0.15 MG-0.03 MG TABLET Take 1 tablet by mouth once d* CETIRIZINE 10 MG TABLET Take 10 mg by mouth once edgar* FLUTICASONE 50 MCG/ACTUATION * Use 1 [place] in each nostril o* Patient not taking: Reported on 09/10/2017 Problem List As Of Date 01/27/2018 Noted Resolved Pain in joint, upper arm [M25.529] INVALID FOR*10/22/2011 Irregular menstrual cycle [N92.6] INVALID FOR* Dysmenorrhea [N94.6] INVALID FOR* Hyperthyroidism [E05.90] INVALID FOR* Croup [J05.0] More... Other instructions from your clinician: Discussed pain may be constipation with irritable bowel component. 1. Take Dicyclomine (Bentyl) 1 Capsules - Before meals 3 times a day -can increase to 2 capsules if needed -side effects: dry mouth, rarely causes dizziness CONSTIPATION TREATMENT 1. CLEANOUT -- Give 15 capfuls of Miralax dissolved in 60 oz of fluid (non-carbonated) over 2-3 hours. 2. MAINTENANCE -- After clean out, give 1 capful of Miralax (17gm) dissolved in 5-6 oz of non-carbonated fluid daily. -- Adjust the dose of Miralax by 1/2 cap every 3-4 days so that stools are formed, soft with at least 1 stool daily. Miralax softens, it does not make you. 3. HEALTHY BOWEL HABITS - MECHANICS -- Minimize straining on the toilet - 10 min max -- It is okay if nothing comes out while on the toilet, the act of sitting and trying to have a bowel movement is important. If no bowel movement after 10 minutes, get up from toilet and try again with the next meal. -- Please be sure that both feet are on a solid surface when sitting on toilet. If feet do not reach the floor, a stool or phone book may be useful. -- Encourage water intake throughout the day. We discussed Irritable Bowel Syndrome, the brain-gut axis and the relationship of abdominal symptoms with stress and anxiety. I discussed the importance of psychological therapy and healthy lifestyle choices as it relates to IBS. Drink 2-3 L of water per day, eat healthy, exercise 30minutes per day, get 8-9 hours of sleep at night, and Go To School! 4. Consider colonoscopy if not improving Prescriptions ordered this encounter Disp Refills Start End DICYCLOMINE 10 MG CAPSULE 90 c* 3 01/27/2018 Route: ORAL Sig: Take 1 capsule by mouth three times daily. Disposition: Return in about 2 months (around 03/29/2018). Follow-up and Disposition History Recorded Encounter Status:Closed by JASIEL DUMONT MD on 01/30/18 PROGRESS Observed: 09/14/2017 Status: COMPLETED Source: [place] 11:24 AM [facility] HNO ID: [id number] Author: Simone Browne Service: (none) Author Type: Material Checker Type: Progress Notes Filed: 09/14/2017 11:24 AM Note Text: Radiology Service Progress Note PATIENT NAME: Velia Cohen DATE OF SERVICE: September 14, 2017 TIME: 11:24 AM PATIENT IDENTITY VERIFICATION COMPLETED USING TWO (2) METHODS: Patient confirmed name verbally and Date of . PATIENT GENDER DATA: Female. status: : No status: N/A PATIENT RELEVANT IMPLANT DATA REVIEWED: Not Applicable RADIOLOGY DEPARTMENT: Ultrasound PERIPHERAL IV DATA: Not applicable SIGNED BY: SIMONE BROWNE RDMS RVT September 14, 2017 11:24 AM PROGRESS Observed: 09/14/2017 Status: COMPLETED Source: [place] 11:23 AM [facility] HNO ID: [id number] Author: Simone Browne Service: (none) Author Type: Material Checker Type: Progress Notes Filed: 09/14/2017 11:24 AM Note Text: Radiology Service Progress Note PATIENT NAME: Velia Cohen DATE OF SERVICE: September 14, 2017 TIME: 11:23 AM PATIENT IDENTITY VERIFICATION COMPLETED USING TWO (2) METHODS: Patient confirmed name verbally and Date of . PATIENT GENDER DATA: Female. status: : No status: N/A PATIENT RELEVANT IMPLANT DATA REVIEWED: Not Applicable RADIOLOGY DEPARTMENT: Ultrasound PERIPHERAL IV DATA: Not applicable SIGNED BY: SIMONE BROWNE RDMS RVT September 14, 2017 11:23 AM US KIDNEY/BLADDER Observed: 09/14/2017 Status: F Source: [place] 11:22 AM [facility] * * *Final Report* * * DATE OF EXAM: Sep 14 2017 11:22AM [id number] - US KIDNEY/BLADDER / PROCEDURE REASON: Left lower quadrant pain * * * * Physician Interpretation * * * * EXAMINATION: RENAL ULTRASOUND HISTORY: Left lower quadrant pain TECHNIQUE: Sonography of the kidneys and urinary bladder was performed. Images were obtained and stored in a permanent archive. MQ: UR_1 COMPARISON: None RESULT: Right Kidney: -Renal length: 11.3 cm -Parenchyma: Normal echogenicity -Collecting system: No hydronephrosis on the RIGHT side -Calculus: No stones in either kidney -Lesion: No masses Left Kidney: -Renal length: 11.5 cm -Parenchyma: Normal echogenicity -Collecting system: No hydronephrosis on the LEFT side -Calculus: No stones in either kidney -Lesion: No masses Bladder: Pre-void bladder volume 525. Postvoid residual 47. IMPRESSION: Negative exam Smalltalk Developer: MIGNON Transcribe Date/Time: Sep 14 2017 11:28A Dictated by : CORNEL ACHARYA DO This examination was interpreted and the report reviewed and electronically signed by: CORNEL ACHARYA DO on Sep 14 2017 11:29AM EST [id number] US FEMALE PELVIS Observed: 09/14/2017 Status: F Source: [facility] 11:22 AM [facility] * * *Final Report* * * DATE OF EXAM: Sep 14 2017 11:22AM [facility] [id number] - US FEMALE PELVIS [place] / PROCEDURE REASON: Left lower quadrant pain * * * * Physician Interpretation * * * * EXAMINATION: TRANSVAGINAL AND LIMITED TRANSABDOMINAL PELVIC ULTRASOUND HISTORY: Left lower quadrant pain TECHNIQUE: Sonography of the pelvis was performed by transvaginal and transabdominal (limited) techniques. Images were obtained and stored in a permanent archive. MQ: UFP_1 COMPARISON: None FLMP: 08/09/2017 RESULT: Uterus size: 6.2 x 5.6 x 2.7 cm cm -Orientation: Anteverted -Myometrium: Normal sonographic appearance. -Endometrial echo complex: 0.7 cm -Cervix: normal Right ovary: 2.7 x 2.8 x 1.7 cm cm Normal sonographic appearance. Left ovary: 3.9 x 2.4 x 1.3 cm Normal sonographic appearance. Tiny cysts are seen in each ovary. Pelvis free fluid: None seen IMPRESSION: NORMAL SONOGRAPHIC APPEARANCE OF THE FEMALE PELVIS. Smalltalk Developer: PSCB Transcribe Date/Time: Sep 14 2017 11:30A Dictated by : CORNEL ACHARYA DO This examination was interpreted and the report reviewed and electronically signed by: CORNEL ACHARYA DO on Sep 14 2017 11:32AM EST [id number] Observed: 09/12/2017 Status: F Source: [place] OVA AND PARASITE EX 4:00 PM [facility] Sp. Request/Comment: - Specimen received in Ova and Parasite Kit. Culture Result - No parasites seen. Performed By: #### OVAP #### [place] [id number] Observed: 09/12/2017 Status: F Source: [place] FECAL LACTOFERRIN 3:00 PM [facility] Sp. Request/Comment: - Specimen received in sterile container. Test Result - Negative for lactoferrin, which may indicate the absence of fecal white blood cells Performed By: #### STLWBC #### [place] [id number] OCCULT BLOOD DIAG. Collected: 09/12/2017 Status: F Source: [place] 2:00 PM [facility] TYPE CODE TESTS RESULT OUT OF REFERENCE UNITS RANGE LAB OBSRCE Occult Stool Blood Source: LAB OBD Occult Negative Blood Diag. Performed By: #### OBDX #### [place] [id number] Observed: 09/12/2017 Status: F Source: [place] FECAL FAT/QUAL 2:00 PM [facility] Sp. Request/Comment: - Specimen received in sterile container. Test Result - Testing performed at [facility]. Refer to scanned documents tab in EPIC for final report. Performed By: #### FFAT #### [place] [id number] Observed: 09/12/2017 Status: F Source: [place] OVA AND PARASITE EX 11:30 AM [facility] Sp. Request/Comment: - Specimen received in Ova and Parasite Kit. Culture Result - No parasites seen. Performed By: #### OVAP #### [place] [id number] AMYLASE Collected: 09/10/2017 Status: F Source: [place] 10:10 AM [facility] TYPE CODE TESTS RESULT OUT OF REFERENCE UNITS RANGE LAB AMYL 30-104 U/L Amylase 86 Performed By: #### AMYL, CMP, CBCDIF, WSR #### [facility] [address] [place], [place] [address] COMP METABOLIC PANEL Collected: 09/10/2017 Status: F Source: [place] 10:10 AM [facility] TYPE CODE TESTS RESULT OUT OF REFERENCE UNITS RANGE LAB TP 6.3-8.0 g/dL Protein, Total 7.3 LAB ALB 3.9-4.9 g/dL Albumin 4.3 LAB CA 8.5-10.2 mg/dL Calcium, Total 9.1 LAB TBIL 0.2-1.3 mg/dL Bilirubin, Total 0.2 LAB ALKP 32-117 U/L Alkaline Phosphatase 57 LAB AST 13-35 U/L AST 22 LAB GLU 74-99 mg/dL Glucose 80 Result Comment: The [place] [employer] (ADA) provides guidance for cutoff values for fasting glucose and random glucose. The ADA defines fasting as no caloric intake for at least 8 hours. Fas ting plasma glucose results between 100 to 125 mg/dL indicate increased risk for diabetes (prediabetes). Fasting plasma glucose results greater than or equal to 126 mg/dL meet the criteria for diagnosis of diabetes. In the absence of unequivocal hyperglycemia, results should be confirmed by repeat testing. In a patient with classic symptoms of hyperglycemia or hyperglycemic crisis, random plasma glucose results greater than or equal to 200 mg/dL meet the criteria for diagnosis of diabetes. Reference: Standards of Medical Care in Diabetes 2016, [place] [employer]. Diabetes Care. 2016.39(Suppl 1). LAB BUN 7-21 mg/dL BUN Low 4 LAB CRET 0.58-0.96 mg/dL Creatinine 0.77 LAB NA 136-144 mmol/L Sodium 140 LAB K 3.7-5.1 mmol/L Potassium 3.9 LAB CL 97-105 mmol/L Chloride 102 LAB CO2 22-30 mmol/L CO2 23 LAB AGAP 9-18 mmol/L Anion Gap 15 LAB ALT 7-38 U/L ALT 20 LAB GFRAA eGFR- Amer. >60 LAB GFRNAA . eGFR-All Other Races >60 Result Comment: eGFR (Estimated GFR) Units of measure: mL/min/1.73 meters squared eGFR is derived from the reexpressed MDRD Study equation using the following parameters: serum creatinine, age, gender and race. The creatinine assay has been calibrated to be traceable to IDMS. An eGFR <60 mL/min/1.73m2 for >3 months is consistent with chronic kidney disease. Refer to KDOQI guidelines for clinical interpretation. In patients with unstable renal function, e.g. those with acute kidney injury, the eGFR may not accurately reflect actual GFR. Performed By: #### AMYL, CMP, CBCDIF, WSR #### [facility] [address] [place], [place] [address] CBC AND DIFFERENTIAL Collected: 09/10/2017 Status: F Source: [place] 10:10 AM [facility] REPOSITORY TYPE CODE TESTS RESULT OUT OF REFERENCE UNITS RANGE LAB WBC 3.70-11.00 k/uL WBC 5.79 LAB RBC 3.90-5.20 m/uL RBC 4.94 LAB HGB 11.5-15.5 g/dL Hemoglobin 12.6 LAB HCT 36.0-46.0 % Hematocrit 41.4 LAB MCV 80.0-100.0 fL MCV 83.8 LAB MCH 26.0-34.0 pG Low MCH 25.5 LAB MCHC 30.5-36.0 g/dL Low MCHC 30.4 LAB RDWCV 11.5-15.0 % RDW-CV 13.2 LAB PLTCT 150-400 k/uL Platelet Count 280 LAB MPV 9.0-12.7 fL MPV 10.7 LAB ANEUT % Neut% 48.9 LAB AANEUT 1.45-7.50 k/uL Abs Neut 2.81 LAB ALYMP % Lymph% 41.1 LAB AALYMP 1.00-4.00 k/uL Abs Lymph 2.38 LAB AMONO % Petroleum% 5.9 LAB AAMONO <0.87 k/uL Abs Petroleum 0.34 LAB AEOS % Eosin% 3.1 LAB AAEOS <0.46 k/uL Abs Eosin 0.18 LAB ABASO % Baso% 1.0 LAB AABASO <0.11 k/uL Abs Baso 0.06 LAB AUNRBC 0 /100 WBC NRBCs 0.0 LAB ABNRBC <0.01 k/uL Absolute nRBC <0.01 LAB DTYP DTYPE Auto Diff Performed By: #### AMYL, CMP, CBCDIF, WSR #### [facility] [address] [id number] SED RATE WESTERGREN Collected: 09/10/2017 Status: F Source: [place] 10:10 AM [facility] REPOSITORY TYPE CODE TESTS RESULT OUT OF REFERENCE UNITS RANGE LAB WSR 0-20 mm/hr Sed Rate Westergren 17 Performed By: #### AMYL, CMP, CBCDIF, WSR #### [id number] [id number] URINALYSIS WITH Collected: 09/10/2017 Status: F Source: [place] MICROSCOPIC 10:10 AM [facility] REPOSITORY TYPE CODE TESTS RESULT OUT OF REFERENCE UNITS RANGE LAB UCOL Yellow Color Yellow LAB [facility] Clear Clarity Clear LAB UGLUC Negative mg/dL Glucose, Urine Negative LAB UBIL Negative Bilirubin, Urine Negative LAB UKET Negative Ketones, Urine Negative LAB USPG 1.005-1.030 Specific Low [place], Ur 1.004 LAB UHGB Negative Hemoglobin/Blood, Negative Ur LAB UPH 4.5-8.0 pH 7.0 LAB UPROT Negative mg/dL Protein, Urine Negative LAB UUROB Normal Urobilinogen Normal LAB UNITR Negative Nitrites Negative LAB ULKEST Negative Leukest Negative LAB UCOM Comments SEE COMMENT Result Comment: N/A LAB UMCOM Urine SEE Slava Comment COMMENT Result Comment: N/A LAB UWBC 0-5 /HPF WBC 0-5 LAB URBC 0-3 /HPF RBC 0-3 LAB UEPI /HPF Epithelial SEE Cells COMMENT Result Comment: Few Squamous Epithelial Cells Performed By: #### UAWMIC #### [id number] [place] [id number] Observed: 09/10/2017 Status: F Source: [place] URINE CULTURE 10:10 AM [facility] REPOSITORY Sp. Request/Comment: - Specimen received in preservative Culture Result - No growth (<1,000 CFU/ml) Performed By: #### URCUL #### [facility] [address] [place], [place] [address] PROGRESS Observed: 09/10/2017 Status: COMPLETED Source: [place] 9:37 AM [facility] REPOSITORY HNO ID: [id number] Author: Timothy Bonds Service: (none) Author Type: Physician Type: Progress Notes Filed: 09/10/2017 9:38 AM Note Text: At today's visit the patient gave permission for mother to receive the results from today's orders. Timothy Bonds M.D. PROGRESS Observed: 09/10/2017 Status: COMPLETED Source: [place] 9:23 AM [facility] REPOSITORY HNO ID: [id number] Author: Timothy Bonds Service: (none) Author Type: Physician Type: Progress Notes Filed: 09/10/2017 9:37 AM Note Text: The patient was seen for the issues discussed below. Problem list and history reviewed. Allergies reviewed. Medications reviewed. Immunizations reviewed. HISTORY: see history section below PHYSICAL EXAM: GENERAL: alert, well appearing, in no distress LEFT EYE: no drainage noted, no conjunctival injection noted; RIGHT EYE: no drainage noted, no conjunctival injection noted; NO ADDITIONAL EYE FINDINGS LEFT EAR: pinna normal, auditory canal normal, tympanic membrane clear, no effusion noted, RIGHT EAR: pinna normal, auditory canal normal, tympanic membrane clear, no effusion noted NOSE/SINUSES: nares normal, mucosa normal, no drainage noted OROPHARYNX: lips without lesions noted, gums/mucosa normal, oropharynx without erythema or exudates NECK/ADENOPATHY: neck supple, no adenopathy noted CHEST/LUNGS: lungs clear to auscultation CARDIOVASCULAR: regular rate and rhythm, capillary refill less than 2 seconds ABDOMEN: soft, nontender, bowel sounds normal, no masses, no organomegaly, abdomen nondistended SKIN: normal color, no rash, no jaundice, moist mucous membranes, turgor within normal limits MUSCULOSKELETAL: extremities with full range of motion present throughout NEUROLOGICAL: cranial nerves II-XII grossly intact, deep tendon reflexes 2+/4+ throughout, muscle mass and tone normal GENERAL RECOMMENDATIONS: - Issues discussed in detail. - Symptom relief measures as needed. - Prescriptions, if ordered, are listed below. - Labs and/or X-rays, if ordered or obtained, are listed below. If the final results are not available at the conclusion of this visit, then additional recommendations may be made based on the final results. Note that all x-rays are reviewed by a radiologist before being considered final. - EKG, if ordered or obtained, is reviewed by a rn plastic surgery before being considered final. Additional recommendations may be made based on the final results. - Return to clinic should current symptoms (if present) worsen, other problems develop, or as needed. ADDITIONAL AND DICTATED PORTION: ADDITIONAL HISTORY The following Nursing History was reviewed with the family: Patient presents with: Abdominal Pain: when eating on/off (approximately 1 hour after eating) LLQ, left flank area The abdominal pain has been for occurring for greater than 1 year. It has significantly worsened over the past several months. It is located in the left lower quadrant and left flank/back. Sharp. Does not radiate. It typically occurs whenever the patient has something to eat. Currently the pain is severe to the point of causing crying and doubling over. It will last for several hours. Nothing has been found that makes it better or specifically worse. Stools are small, soft, do not plug the toilet, and compressible. No large or hard stools. Patient is having a stool once every several days. No blood has been present in the stool. Stools are stated to be brown. No associated vomiting. Abdominal distention as well as excess gas have been common. The patient is followed by [employer] for dysmenorrhea. She has also been evaluated by endocrinology for possible hyperthyroidism. That diagnosis is currently uncertain. Previous testing by the blacking machine operator indicated that the patient is at risk for celiac disease although no evidence of active celiac disease was seen. Patient has not attempted a gluten-free trial followed by a dairy free trial followed by a soy for a trial and currently meet free trial. None of these have provided results. No foreign travel has been present. Family history is positive for mother having abdominal pain at approximately the patient's age. Paternal grandmother has a history of ulcerative colitis. Maternal grandmother with irritable bowel syndrome by history (never formally diagnosed). Multiple members of the maternal side of the family have a strong history of renal stones. No fevers. Fatigue has been present. Patient often taking a nap during the day. Patient has been unable to gain or lose weight. Appetite has been decreased. No eye, ear, nose, chronic throat complaints. No lymphadenopathy. No bleeding or bruising. No chest pain. No cough, wheezing, shortness of breath. No urinary symptoms. No joint complaints. No rash or edema. Informal questioning does reveal patient has been having some mood swings. PHQ 9 was obtained and did not show evidence of depression. The patient will be spending the summer away from home. She is leaving at the end of next week. ACTIVE PROBLEM LIST Irregular Menstrual Cycle Dysmenorrhea Hyperthyroidism IMPORTED PAST MEDICAL HISTORY Diagnosis Date - Croup child recurrent, resolved before kindergarten - Fall 4 years fell from [employer] story window; no concussion or fractures - Menarche -2011 Age 11 - PMH - PAST MEDICAL HISTORY OF 12/16/09 normal color vision IMPORTED PAST SURGICAL HISTORY Procedure Laterality Date - NONE ADDITIONAL EXAM / OTHER INFORMATION none ADDITIONAL IMPRESSION / PLAN Left lower quadrant and left flank pain, etiology not yet determined. Differential would include LIFE ENRICHMENT MANAGER etiologies, renal etiologies, and GI etiologies. Celiac disease unlikely based on recent testing as well as lack of response to a gluten-free diet. Milk intolerance and likely also secondary to the fact that the dairy free diet was unsuccessful. As the patient is leaving in 1 week, screening studies to be sent including blood screening, stool screening, and imaging of the renal system and pelvis. Follow-up recommendations based on results. Orders Placed This Encounter US KIDNEY/BLADDER US FEMALE PELVIS NON-OB NON-TORSION (NO TRANSVAG) COMP METABOLIC PANEL AMYLASE BLD CBC + DIFF SED RATE FECAL LEUKOCYTES URINALYSIS WITH MICROSCOPIC OCCULT BLD EXAM-DIAG FECAL FAT / QUAL H PYLORI AG BY EIA,STOOL OVA + PARA MICROSCOPIC Order Specific Question: Has patient traveled outside the [place] in the past 6-12 months? Answer: No OVA + PARA MICROSCOPIC Order Specific Question: Has patient traveled outside the [place] in the past 6-12 months? Answer: No URINE CULTURE (clean catch) Order Specific Question: Source Answer: URINE-MIDSTREAM CLEAN CATCH cetirizine (ZYRTEC) 10 mg tablet Sig: Take 10 mg by mouth once daily. Time, established: Spent approx. 40+ minutes (86639 level) in [id number] contact with the patient and/or family, more than half of which was devoted to discussing the above problems. This note was partially generated using [facility] voice recognition system, and there may be some incorrect words, spellings, and punctuation that were not noted in checking the note before saving. Timothy Bonds M.D. CNOV Observed: 09/10/2017 Status: COMPLETED Source: [place] 8:30 AM [facility] REPOSITORY [facility] VELIA COHEN ([id number]) 2000 F Date Time Provider Department 09/10/17 8:30 AM TIMOTHY BONDS During your visit today, we recorded the following information about you: Temperature Pulse Respiration Blood pressure 97.1 degrees 88/minute 16/minute 114/72 Weight 89.1 kg Timothy Bonds MD 09/10/2017 9:37 AM Signed The patient was seen for the issues discussed below. Problem list and history reviewed. Allergies reviewed. Medications reviewed. Immunizations reviewed. HISTORY: see history section below PHYSICAL EXAM: GENERAL: alert, well appearing, in no distress LEFT EYE: no drainage noted, no conjunctival injection noted; RIGHT EYE: no drainage noted, no conjunctival injection noted; NO ADDITIONAL EYE FINDINGS LEFT EAR: pinna normal, auditory canal normal, tympanic membrane clear, no effusion noted, RIGHT EAR: pinna normal, auditory canal normal, tympanic membrane clear, no effusion noted NOSE/SINUSES: nares normal, mucosa normal, no drainage noted OROPHARYNX: lips without lesions noted, gums/mucosa normal, oropharynx without erythema or exudates NECK/ADENOPATHY: neck supple, no adenopathy noted CHEST/LUNGS: lungs clear to auscultation CARDIOVASCULAR: regular rate and rhythm, capillary refill less than 2 seconds ABDOMEN: soft, nontender, bowel sounds normal, no masses, no organomegaly, abdomen nondistended SKIN: normal color, no rash, no jaundice, moist mucous membranes, turgor within normal limits MUSCULOSKELETAL: extremities with full range of motion present throughout NEUROLOGICAL: cranial nerves II-XII grossly intact, deep tendon reflexes 2+/4+ throughout, muscle mass and tone normal GENERAL RECOMMENDATIONS: - Issues discussed in detail. - Symptom relief measures as needed. - Prescriptions, if ordered, are listed below. - Labs and/or X-rays, if ordered or obtained, are listed below. If the final results are not available at the conclusion of this visit, then additional recommendations may be made based on the final results. Note that all x-rays are reviewed by a radiologist before being considered final. - EKG, if ordered or obtained, is reviewed by a rn plastic surgery before being considered final. Additional recommendations may be made based on the final results. - Return to clinic should current symptoms (if present) worsen, other problems develop, or as needed. ADDITIONAL AND DICTATED PORTION: ADDITIONAL HISTORY The following Nursing History was reviewed with the family: Patient presents with: Abdominal Pain: when eating on/off (approximately 1 hour after eating) LLQ, left flank area The abdominal pain has been for occurring for greater than 1 year. It has significantly worsened over the past several months. It is located in the left lower quadrant and left flank/back. Sharp. Does not radiate. It typically occurs whenever the patient has something to eat. Currently the pain is severe to the point of causing crying and doubling over. It will last for several hours. Nothing has been found that makes it better or specifically worse. Stools are small, soft, do not plug the toilet, and compressible. No large or hard stools. Patient is having a stool once every several days. No blood has been present in the stool. Stools are stated to be brown. No associated vomiting. Abdominal distention as well as excess gas have been common. The patient is followed by [employer] for dysmenorrhea. She has also been evaluated by endocrinology for possible hyperthyroidism. That diagnosis is currently uncertain. Previous testing by the blacking machine operator indicated that the patient is at risk for celiac disease although no evidence of active celiac disease was seen. Patient has not attempted a gluten-free trial followed by a dairy free trial followed by a soy for a trial and currently meet free trial. None of these have provided results. No foreign travel has been present. Family history is positive for mother having abdominal pain at approximately the patient's age. Paternal grandmother has a history of ulcerative colitis. Maternal grandmother with irritable bowel syndrome by history (never formally diagnosed). Multiple members of the maternal side of the family have a strong history of renal stones. No fevers. Fatigue has been present. Patient often taking a nap during the day. Patient has been unable to gain or lose weight. Appetite has been decreased. No eye, ear, nose, chronic throat complaints. No lymphadenopathy. No bleeding or bruising. No chest pain. No cough, wheezing, shortness of breath. No urinary symptoms. No joint complaints. No rash or edema. Informal questioning does reveal patient has been having some mood swings. PHQ 9 was obtained and did not show evidence of depression. The patient will be spending the summer away from home. She is leaving at the end of next week. ACTIVE PROBLEM LIST Irregular Menstrual Cycle Dysmenorrhea Hyperthyroidism IMPORTED PAST MEDICAL HISTORY Diagnosis Date - Croup child recurrent, resolved before kindergarten - Fall 4 years fell from 2nd story window; no concussion or fractures - Menarche -2011 Age 11 - PMH - PAST MEDICAL HISTORY OF 12/16/09 normal color vision IMPORTED PAST SURGICAL HISTORY Procedure Laterality Date - NONE ADDITIONAL EXAM / OTHER INFORMATION none ADDITIONAL IMPRESSION / PLAN Left lower quadrant and left flank pain, etiology not yet determined. Differential would include LIFE ENRICHMENT MANAGER etiologies, renal etiologies, and GI etiologies. Celiac disease unlikely based on recent testing as well as lack of response to a gluten-free diet. Milk intolerance and likely also secondary to the fact that the dairy free diet was unsuccessful. As the patient is leaving in 1 week, screening studies to be sent including blood screening, stool screening, and imaging of the renal system and pelvis. Follow-up recommendations based on results. Orders Placed This Encounter US KIDNEY/BLADDER US FEMALE PELVIS NON-OB NON-TORSION (NO TRANSVAG) COMP METABOLIC PANEL AMYLASE BLD CBC + DIFF SED RATE FECAL LEUKOCYTES URINALYSIS WITH MICROSCOPIC OCCULT BLD EXAM-DIAG FECAL FAT / QUAL H PYLORI AG BY EIA,STOOL OVA + PARA MICROSCOPIC Order Specific Question: Has patient traveled outside the [place] in the past 6-12 months? Answer: No OVA + PARA MICROSCOPIC Order Specific Question: Has patient traveled outside the [place] in the past 6-12 months? Answer: No URINE CULTURE (clean catch) Order Specific Question: Source Answer: URINE-MIDSTREAM CLEAN CATCH cetirizine (ZYRTEC) 10 mg tablet Sig: Take 10 mg by mouth once daily. Time, established: Spent approx. 40+ minutes (23042 level) in xqes-ll-pauo contact with the patient and/or family, more than half of which was devoted to discussing the above problems. This note was partially generated using [employer] [facility] voice recognition system, and there may be some incorrect words, spellings, and punctuation that were not noted in checking the note before saving. Timothy Bonds M.D. Timothy Bonds MD 09/10/2017 9:38 AM Signed At today's visit the patient gave permission for mother to receive the results from today's orders. Timothy Bonds M.D. Referring Provider: SELF [[id number]] Allergies As of Date: 09/10/2017 Noted Allergy Reaction environmental [Other] 03/26/2010 9 - Itching Date Reviewed: 09/10/2017 Reviewed by: Timothy Bonds - Fully Assessed Reason for Visit: Abdominal Pain [1] Cmt: when eating on/off (approximately 1 hour after eating) LLQ, left flank area Primary Visit Diagnosis:Left lower quadrant pain [R10.32] Order(s):COMP METABOLIC PANEL [SQCMP] Order #: [id number] FUTURE AMYLASE BLD [SQAMYL] Order #: [id number] FUTURE CBC + DIFF [SQCBCDIF] Order #: [id number] FUTURE SED RATE WESTERGREN [SQWSR] Order #: [id number] FUTURE OCCULT BLD EXAM-DIAG [SQOB] Order #: [id number] FECAL FAT / QUAL [SQFFAT] Order #: [id number] H PYLORI AG BY EIA,STOOL [SQHPYLAG] Order #: [id number] FUTURE OVA + PARA MICROSCOPIC [SQOVAP] Order #: [id number] OVA + PARA MICROSCOPIC [SQOVAP] Order #: [id number] FECAL LACTOFERRIN/LEUKOCYTES [SQFECWBC] Order #: [id number] US KIDNEY/BLADDER [[id number]] Order #: [id number] FUTURE FEMALE PELVIS NON-OB NON-TORSION (NO TRANSVAG) [[id number]] Order #: [id number] FUTURE URINALYSIS WITH MICROSCOPIC [SQUAWMIC] Order #: [id number] FUTURE URINE CULTURE [SQURCUL] Order #: [id number] Prescriptions as of 09/10/2017 Sig: CETIRIZINE 10 MG TABLET Take 10 mg by mouth once edgar* DESOGESTREL 0.15 MG-ETHINYL E* Take 1 tablet by mouth once d* FLUTICASONE 50 MCG/ACTUATION * Use 1 [place] in each nostril o* Patient not taking: Reported on 09/10/2017 Problem List As Of Date 09/10/2017 Noted Resolved Pain in joint, upper arm [M25.529] INVALID FOR*10/22/2011 Irregular menstrual cycle [N92.6] INVALID FOR* Dysmenorrhea [N94.6] INVALID FOR* Hyperthyroidism [E05.90] INVALID FOR* Questionnaire: PED PHQ 9 1. Feeling down, depressed, irritable or hopeless? -> 1 - Several Days 2. Little interest or pleasure in doing things? -> 0 - Not At All 3. Trouble falling asleep, staying asleep, or sleeping too much? -> 3 - Nearly Every Day 4. Poor appetite, weight loss, or overeating? -> 0 - Not At All 5. Feeling tired or little energy? -> 1 - Several Days 6. Feeling bad about yourself-or feeling that you are a failure or that you have let yourself or your family down? -> 0 - Not At All 7. Trouble concentrating on things like school work, reading or watching TV? -> 0 - No- t At All 8. Moving or speaking so slowly that other people could have notices? Or the opposite-being so fidgety or restless that you were moving around a lot more than usual? -> 0 - Not At All 9. Thoughts that you would be better off or of hurting yourself in some way? -> 0 - Not At All 10. In the past year have you felt depressed or sad most days, even if you felt okay sometimes? -> Yes 11. If you are experiencing any of the problems listed on this questionnaire, how difficult have these problems made it for you to do your work, take care of things at home or get along with other people? -> Not at all difficult 12. Has there been a time in the past month when you have had serious thoughts about ending your life? -> No 13. Have you ever tried to kill yourself or made a suicide attempt? -> No SCORE -> 5 Total Score: Depression Severity -> 05-09=Mild depression Encounter Status:Closed by TIMOTHY BONDS MD on 09/10/17 INTERNAL MEDICINE Observed: 09/02/2017 Status: F Source: [place] OFFICE VISIT 4:31 PM [facility] [address] [place] [address] [address] [place] [address] OFFICE VISIT Date of Service: 09/01/17 MR#: [id number] Acct: [id number] Name: VELIA COHEN Rep #: [id number] : 2000 Provider: Meaghan Murphy MD Age/Sex: 17/F Location: [facility] Status: Signed Intake Vital Signs09/01/17 Height 5 ft 9 in Intake Visit Reasons: [facility]) Chief Complaint: Abdominal pain Is patient in pain?: No Allergies No Known Allergies Allergy (Verified 02/22/14 13:01) Medications cetirizine 10 mg capsule 10 mg PO QDAY 09/01/17 [History Confirmed 09/01/17] desogestrel 0.15 mg-ethinyl estradiol 0.03 mg tablet 1 tab PO QDAY 09/01/17 [History Confirmed 09/01/17] omeprazole 20 mg capsule,delayed release 20 mg PO QDAY #60 cap 09/01/17 [Rx Confirmed 09/01/17] Is last menstrual period known: Yes PFSH Medical History Gluten intolerance (Chronic) History of thyroid disorder (Acute) Seasonal allergies (Chronic) Family History Grandfather Cancer hodgkins Colon cancer Sister Seizures during director industrial nursing Thyroid disorder Father Hypertension Thyroid disorder Grandmother Colitis Breast cancer Social History Smoking Status: Never smoker alcohol intake: never substance use type: does not use what type of physical activity do you participate in: running, weight training frequency: 5-6 times per week HPI HPI Chief Complaint: Abdominal pain Details: VELIA COHEN, is a 17yo F who presents to the office today to establish care. She also has some complaints. She reports ongoing abdominal pain last couple of months to years. Pain is said to be worse typically an hour after food. She does not associate this with intake of gluten containing food. She denies any blood in his stool or weight changes. She feels well otherwise. ROS Const Constitutional: Positive for change in appetite (loss of ); no weight change, body ache, chills, fatigue, sleep problems, fever(s), snoring, weakness, frequent falls, headache(s) or excessive sweating Eyes Eyes: No change in vision, eye pain, light sensitivity or blurry vision ENT ENT: No headache(s), abnormal hearing, ear pain, tinnitus, nasal congestion or neck pain Resp Respiratory: No snoring, cough, shortness of breath or wheezing Cardio Cardiology: No excessive sweating, chest pain at rest, chest pain with exertion, shortness of breath, dyspnea on exertion, palpitations, orthopnea or lightheadedness Gastro GI: Positive for abdominal pain (left side), constipation, vomiting, nausea/dyspepsia and bloating; no change in bowel habits, diarrhea or cramping Genitourinary-Female: No burning urination, painful urination, urinary incontinence, urinary frequency, abnormal vaginal bleeding, pelvic pain or other Musc Musculoskeletal: No neck pain, abnormal walking, joint pain, back pain, limited range of motion, numbness or tingling Skin Skin: No redness, dry skin, itching, lesions, wounds or rash Neuro Neurology: No weakness, frequent falls, headache(s), abnormal hearing, abnormal walking, numbness, tingling, abnormal speech, dizziness or memory loss Psych Psychiatric: Positive for change in appetite (loss of ), No memory loss, No anxiety, No depression, No Thoughts of harming yourself/Others Endo Endocrine: No fatigue, excessive sweating, cold intolerance, increased thirst/drinking, heat intolerance, flushing or increased hunger Aller/Imm Allergy/Immunologic: No wheezing, itchy eyes, hives or seasonal allergy symptoms Ugo/Lymp Hematologic/Lymphatic: No easy bleeding, easy bruising or enlarged lymph nodes Exam Const General: cooperative, no acute distress, well developed Orientation: alert, awake, oriented x3 HENMT Head: atraumatic, normocephalic, normal to inspection Ears: hearing grossly normal bilaterally Neck Neck: normal visual inspection, full ROM, no lymphadenopathy Neck mass: No Thyroid: thyroid normal Resp Effort AND Inspection: normal respiratory effort, able to speak in complete sentences Auscultation: Bilateral: Clear to Auscultation Cardio Rate: regular rate Rhythm: regular rhythm Heart Sounds: S1 normal, S2 normal GI Inspection: normal to inspection Palpation: soft, no hepatosplenomegaly Neuro General: alert, awake, oriented x3, moves all extremities, CN's II-XI intact bilaterally Extrem General: no clubbing, cyanosis or edema Psych Appearance: grossly normal Mood: congruent mood Affect: normal affect Assessment AND Plan 1. Abdominal pain R10.9 Plan Chronic. However said to be more persistent. Symptoms probably due to reflux/gastritis/peptic ulcer. Trial of omeprazole 20 mg every morning. Okay to increase to 40 mg if maximum benefit not achieved. Probiotics also recommended. Dietary modifications discussed. Follow-up in 3 weeks. 2. Gluten intolerance K90.41 Plan Significant family history also. Has had no colonoscopy or EGD done. Labs ordered. Follow-up with results. Continue dietary management. This note was generated with [employer] software. It may contain incorrect words, spelling, and punctuation that were not noted in checking the note before signing. Orders Orders: Plan Detail Other Medications New: Follow Up 1 Month Coding Level of Care Code Off vis,new,level 3 Diagnoses Abdominal pain R10.9 Gluten intolerance K90.41 09/02/17 1631 <Electronically signed by Meaghan Murphy MD> Date Meaghan Murphy MD Cosigner Signature: Date (if applicable) CC: CBC W/DIFF, AUTOMATED Collected: 09/01/2017 Status: F Source: [place] 4:07 PM [facility] REPOSITORY TYPE CODE TESTS RESULT OUT OF RANGE REFERENCE UNITS LAB L100.1000 4.4-11.0 K/mm3 Normal WBC 7.7 LAB L100.1200 4.2-5.4 M/mm3 Normal RBC 4.88 LAB L100.1300 12.0-15.0 g/dl Normal HGB 12.5 LAB L100.1400 37-47 % Normal HCT 38.4 LAB L100.1500 81-99 fL Low MCV 78.7 LAB L100.1600 27.0-32.0 pg Low MCH 25.6 LAB L100.1700 32-36 g/gl Normal MCHC 32.6 LAB L100.1810 11.6-14.6 % Normal RDW CV 13.0 LAB L100.1820 35.1-43.9 fl Normal RDW SD 37.4 LAB L100.1900 150-450 K/mm3 Normal PLT 311 LAB L100.2000 6.2-12.0 fl Normal MPV 9.8 LAB L100.2100 47-70 % Normal NEUT% 49.9 LAB L100.2200 19-41 % Normal LY% 40.8 LAB L100.2300 0-10 % Normal MONO% 6.8 LAB L100.2400 0-5 % Normal EO% 2.1 LAB L100.2500 0-1 % Normal BASO% 0.3 LAB L100.2550 0.0-0.9 % Normal IM GRAN % 0.100 Result Comment: IG% - Immature Granulocytes (promyelocytes, myelocytes and metamyelocytes) > 1% indicates that a LEFT SHIFT is Present. LAB L100.2620 2.0-7.7 X10 3/uL Normal Absolute Neut 3.9 LAB L100.2720 0.83-4.51 X10 3/ul Normal Absolute Lymph 3.14 Performed By: #### L100.0100 #### [facility] [address], [address] IRON BINDING Collected: 09/01/2017 Status: F Source: [place] CAPACITY,TOTAL 4:07 PM [facility] REPOSITORY TYPE CODE TESTS RESULT OUT OF RANGE REFERENCE UNITS LAB L503.6075 250-450 ug/dL Normal TIBC 435 Performed By: #### L503.6075, L503.6150, L503.6550 #### [facility] [address], [address] IRON Collected: 09/01/2017 Status: F Source: [place] 4:07 PM [facility] REPOSITORY TYPE CODE TESTS RESULT OUT OF RANGE REFERENCE UNITS LAB L503.6150 50-170 ug/dL Normal IRON 84 Performed By: #### L503.6075, L503.6150, L503.6550 #### [facility] [address], [address] FERRITIN Collected: 09/01/2017 Status: F Source: [place] 4:07 PM [facility] REPOSITORY TYPE CODE TESTS RESULT OUT OF RANGE REFERENCE UNITS LAB L503.6550 8-252 ng/mL Normal FERRITIN 27 Performed By: #### L503.6075, L503.6150, L503.6550 #### [facility] [address], [address] VITAMIN B12 Collected: 09/01/2017 Status: F Source: [place] 4:07 PM [facility] REPOSITORY TYPE CODE TESTS RESULT OUT OF RANGE REFERENCE UNITS LAB L503.0105 211-911 pg/mL Normal Vitamin B12 549 Performed By: #### L503.0105, L506.1000 #### [facility] [address], [address] VITAMIN D,25 HYDROXY Collected: 09/01/2017 Status: F Source: [place] 4:07 PM [facility] REPOSITORY TYPE CODE TESTS RESULT OUT OF RANGE REFERENCE UNITS LAB L506.1000 29.95-100.01 ng/mL Normal Vitamin D 30.5 25-OH Result Comment: Vitamin D 25(OH) Status Range Deficiency <20 ng/mL (50nmol/L) Insuffciency 20 - 30 ng/mL (50 - 75 nmol/L) Sufficiency 30 - 100 ng/mL (75 - 250 nmol/L) Toxicity >100 ng/mL (>250 nmol/L) Performed By: #### L503.0105, L506.1000 #### [facility] [address] [place], [address] CNCO Observed: 07/05/2017 Status: COMPLETED Source: [place] 12:00 AM [facility] REPOSITORY Letter Text [facility], [address] [place] [address] July 05, 2017 RE: Velia Cohen [address] [facility] [address] 2000 Dear Parent/Guardian of Velia, We have tried to contact you in regards to your child's Need for Routine Physical Our efforts to reach you have been unsuccessful. Please call [phone] to coordinate your child's plan of care. Thank you and we look forward to talking with you. Sincerely, [facility] ALLERGIES ALLERGIES DATE TYPE / CODE NAME / CODE REACTION SEVERITY SOURCE 03/27/2018 Drug No Known Unknown [place] Allergy/[id number](S Allergies/F [facility] [id number]([facility] XNORM) Repository 03/26/2010 Miscellaneous OTHER ITCHING [facility] Allergy/[id number]([facility] NOMED CT) Repository ENCOUNTERS ENCOUNTERS ADMIT/DISCHARGE ACCOUNT ADMITTING ENCOUNTER LOCATION SOURCE NUMBER CLASS 03/31/2018 [id number] Ambulatory [facility] ing:US Repository 03/27/2018 [id number] Ambulatory [facility] Hospital ing:LAB Repository 03/27/2018/03/27/20 [id number] Ambulatory BMSBuilding:B [place] [address] [facility] Repository 01/27/2018/02/01/20 [id number] Ambulatory [address] Repository 09/14/2017/09/15/19 [id number] Ambulatory [address] Repository 09/14/2017/09/15/19 [id number] Ambulatory [address] Repository 09/13/2017 [id number] Ambulatory BMSBuilding:[place] [facility] Repository 09/10/2017/09/11/19 [id number] Ambulatory [address] Repository 09/10/2017/09/13/19 [id number] Ambulatory [address] Repository 09/01/2017 [id number] [facility] 09/01/2017/09/02/19 [id number] Ambulatory BMSBuilding:B [place] [address] [facility] Repository PAYERS PAYERS ENCOUNTER GUARANTOR PAYER SUBSCRIBER SOURCE 03/31/2018 VELIA Thomas Primary DAT [place] [id number] TR Insurance:CORESOURCEPo KNEBUSCHDOB: [address] Number: [id number]: [id number] Repository Date:9576-27-75FL [address] ([address]) [address] [place] [address]KC: 03/31/2018 Secondary NOT GIVENUNK [place] Insurance:SELF PAY [facility] Number: Effective Repository Date:2018-03-27 03/27/2018 VELIA Thomas Primary DAT [place] [id number] TR [facility] EBUSCOB: [address] Number: [id number]: [id number] Repository Date:7001-96-46IV [address]) [address] [place] [address]YX: 03/27/2018 Secondary NOT GIVENUNK [place] Insurance:SELF PAY [facility] Number: Effective Repository Date:2018-03-27 03/27/2018 VELIA Thomas Primary [place] [id number] TR Insurance:CORESOURCEPo KNEBUSCHDOB: [address] Number: [id number]: [id number] Repository Date:7094-41-69KL [address]) [address] [place] [address]CS: 03/27/2018 Secondary NOT GIVENUNK Jadyn Insurance:SELF PAY [facility] Number: Effective Repository Date:2018-03-27 09/13/2017 DAT Primary DAT [place] [id number] Insurance:CORESOURCEPo KNEBUSCHDOB: [facility] licy [place]: [id number] [id number] Repository [phone]: (160) Date:5085-26-28[phone] ([address]) [address] [place] [address]SF: 09/13/2017 Secondary Insurance: DAT [place] DO NOT USE NGS KNEBUSCHDOB[id number] Hospital Number: Repository [id number] Date:4833-54-82[address] [place] [address]KW: 09/13/2017 Tertiary NOT GIVENUNK [place] Insurance:SELF PAY [facility] Number: Effective Repository Date:2017-09-01 09/01/2017 VELIA Thomas Primary DAT [place] [id number] TR Insurance:CORESOURCEPo KNEBUSCHDOB: [address] Number: [id number]: [id number] Repository [phone] Date:0834-90-67HJ [address] ([address]) [address] [place] [address]VI: 09/01/2017 Secondary NOT GIVENUNK Jadyn Insurance:SELF PAY [facility] Number: Effective Repository Date:2017-09-01 09/01/2017 VELIA Thomas Primary DAT [place] [id number] TR Insurance:CORESOURCEPo EBUSCHDOB: [address] Number: [id number]: [id number] Repository Date:0985-83-12DF [address] ([address]) [address] [place] [address]CV: 09/01/2017 Secondary Insurance: DAT [place] DO NOT USE NGS KNEBUSCHDOB: [facility] CORESOURCEPolicy [id number] Hospital Number: Repository [id number] Date:1043-74-09[address] [place] [address]XR: 09/01/2017 Tertiary NOT GIVENUNK Jadyn Insurance:SELF PAY [facility] Number: Effective Repository Date:2017-08-22
== END ==
PROVIDERS: Family Provider Internal Medicine; PCP Internal Medicine; Referring Provider Nurse Practitioner; Visit Provider Nurse Practitioner
DX: R94.6 Abnormal results of thyroid function studies (principal)
CPT/HCPCS: 36415; 82607; 82728; 83540; 84439; 84443; 84481

== ENCOUNTER → 2018-03-31 13:14 | Outpatient (CLI) | payer OTHER, SELFPAY ==
[2018-03-27 14:46] VITALS: BMI 29.9
--- NOTE | 2018-03-31 13:16 | US_ITS ---
STUDY: THYROID ULTRASOUND REASON FOR EXAM: Female, 18 years old. Hypothyroidism. TECHNIQUE: Ultrasound evaluation of the thyroid was performed with real-time and static brown-scale imaging. COMPARISON: None. FINDINGS: RIGHT LOBE: The right lobe of the thyroid gland measures 5.2 x 2.0 x 1.9 cm. There is a heterogeneous echotexture. There are no demonstrated solid, cystic or complex lesions. There is increased vascularity throughout the gland. LEFT LOBE: The left lobe of the thyroid gland measures 5.3 x 2.1 x 1.9 cm. There is a heterogeneous echotexture. There are no demonstrated solid, cystic or complex lesions. ISTHMUS: The isthmus measures 0.3 cm. US/Thyroid IMPRESSION: Enlarged, heterogenous and hypervascular thyroid gland consistent with a history of thyroiditis. Electronically Signed: Nguyen Steven MD at 16:05 EST Tel , Service support ,
== END ==
PROVIDERS: Family Provider Internal Medicine; PCP Internal Medicine; Referring Provider Nurse Practitioner; Visit Provider Nurse Practitioner
DX: E06.3 Autoimmune thyroiditis (principal)
CPT/HCPCS: 76536

== ENCOUNTER → 2020-01-25 09:55 | Outpatient (CLI) | payer OTHER, SELFPAY ==
[2018-03-27 14:46] VITALS: BMI 29.9
== END ==
PROVIDERS: PCP Pediatrics; Referring Provider Otolaryngology; Visit Provider Otolaryngology
DX: Z11.59 Encounter for screening for other viral diseases (principal)
CPT/HCPCS: 87635; C9803; U0003

== ENCOUNTER 2020-07-04 13:29 | Outpatient (RCR) | payer OTHER, SELFPAY ==
[2018-03-27 14:46] VITALS: BMI 29.9
== END 2020-09-16 23:59 ==
LOC: IMMUN 13:29
PROVIDERS: PCP Pediatrics; Visit Provider Family Medicine
DX: Z23 Encounter for immunization (principal)
CPT/HCPCS: 0001A; 0002A; 91300